=== PATIENT | male | born 1945 | race Caucasian/White ===

== ENCOUNTER 2017-01-11 21:56 | Inpatient (IN) ==
[2017-01-11] MEDS ORDERED: Ondansetron 4 MG/2 ML VIAL IVP ONE (22:12)
--- NOTE | 2017-01-11 22:14 | Emergency Department Note ---
Disposition Clinical Impression: Weakness CHF (congestive heart failure) Qualifiers: Congestive heart failure type: unspecified congestive heart failure type Congestive heart failure chronicity: unspecified congestive heart failure chronicity Qualified Code(s): I50.9 - Heart failure, unspecified Disposition: Admitted As Inpatient Condition: Fair Time of Disposition: 02:35 General Adult HPI - General Chief complaint: ED Nausea/Vomiting/Diarrhea Stated complaint: N/V Time Seen by Provider: 01/11/17 22:10 Source: family Limitations: no limitations Nursing Notes Reviewed: Yes Vital Signs Reviewed: Yes - History of Present Illness HPI Narrative: 71-year-old male with known history of CHF who arrives via private vehicle complaints of bleeding from his lower extremities, leg swelling, worsening weakness. His reported [facility] told that [facility] were [facility] and was instructed to try to the emergency department here. She reported that patient is legally blind, is normally able to ambulate however today he has been unable to. Patient's was also reports that he has had nausea and vomiting all day. reports patient had been confused earlier today. Patient states he discontinued his Lasix about 1 week ago that he was taken for his lower extremity edema. reports patient is on Coumadin for history of lower extremity blood clot last year. Pain Scale: 5 - Related Data Allergies Allergy/AdvReac Type Severity Reaction Status Date / Time No Known Allergies Allergy Verified 01/11/17 22:01 All systems ED: reviewed and negative except as stated. Constitutional: Denies: fever, chills Eyes: Reports: vision change (chronic blindness) ENT ED: Denies: ear pain, throat pain Cardiovascular: Denies: chest pain, palpitations, dyspnea on exertion Respiratory: Denies: dyspnea Gastrointestinal: Reports: nausea, vomiting. Denies: abdominal pain, diarrhea, constipation Genitourinary: Denies: dysuria Musculoskeletal: Denies: back pain, neck pain Integumentary: Reports: as per HPI Neurological: Denies: headache, weakness Endocrine: Denies: fatigue Hematological/Lymphatic: Denies: easy bleeding Allergic/Immunologic: Denies: facial swelling Past Medical History - Past Medical History Medical history: Reports: CHF, DVT, diabetes - Social History Smoking Status: Never smoker Alcohol use: Reports: none Drug use: Reports: none Physical Exam - General Limitations: no limitations General appearance: alert, in no apparent distress - Head Head exam: normocephalic - Eye Eye exam: Present: EOMI - ENT ENT exam: mucous membranes moist - Neck Neck exam: Present: full ROM - Chest Chest inspection: Present: normal inspection, symmetric chest wall rise - Respiratory Respiratory exam: Absent: respiratory distress - Cardiovascular Cardiovascular exam: Present: regular rate, normal rhythm - Abdominal Exam Abdominal exam: Present: soft, Non-Tender - Extremities Exam Extremities exam: Present: normal inspection, full ROM, pedal edema - Expanded Lower Extremity Exam Lower leg exam: Present: swelling, erythema Ankle exam: Present: swelling, erythema Foot/toe exam: Present: swelling, erythema Gait: not tested/not observed - Back Exam Back exam: Present: full ROM - Neurological Exam Neurological exam: Present: alert - Psychiatric Psychiatric exam: Present: normal affect, normal mood - Skin Skin exam: Present: warm, dry, intact, normal color. Absent: rash, cyanosis, diaphoresis Course Course Narrative: Patient seen and examined, he is in no acute distress, does not look toxic. No abdominal pain. Lungs clear to auscultation no rhonchi or rales. Does have significant lower extremity edema, chronic-appearing discoloration and edema. Left lower extremity bandaging placed controlling bleed. Does report chronic wound over that area as well. reports patient had more confused today.Workup initiated. - Reevaluation(s) Reevaluation #1: EKG nonspecific ST changes. Patient does have elevated troponin, but he denies any shortness of breath chest pain diaphoresis. This may be related to his renal function however [facility] Patient received Zofran his nausea has improved. Time: 23:15 Reevaluation #2: Chest x-ray small left-sided pleural effusion. Discussed with Dr. Bird, we will page the hospitalist for admission for edema, CHF, weakness. Time: 00:39 Reevaluation #3: Patient discussed with and accepted by hospitalist Dr. Means Time: 02:34 Vital Signs Temperature 98.1 F 01/11/17 21:57 Pulse Rate 88 01/11/17 21:57 Respiratory Rate 20 01/11/17 21:57 Blood Pressure 182/76 01/11/17 21:57 O2 Sat by Pulse Oximetry 97 01/11/17 21:57 Temperature 98.1 F 01/11/17 21:57 Pulse Rate 86 01/12/17 00:54 Respiratory Rate 16 01/12/17 02:55 Blood Pressure 182/69 01/12/17 02:55 O2 Sat by Pulse Oximetry 95 01/12/17 00:55 Oxygen Delivery Oxygen Delivery Room Air Medical Decision Making - Lab Data Lab results reviewed: Yes I reviewed the patient's lab results. Result diagrams: 01/11/17 22:27 01/11/17 22:27 Lab Results 01/11/17 01/11/17 01/11/17 Range/Units 22:27 22:27 22:27 WBC (4.3-11.1) K/mcL RBC (4.19-5.50) M/mcL Hgb (12.9-16.9) g/dL Hct (37.5-50.1) % MCV (83.0-100.0) fL MCH (28.0-33.3) pg MCHC (31.6-35.5) g/dL RDW (11.5-14.5) % Plt Count (140-400) K/mcL MPV (9.4-12.4) fL Immature Gran % (0-4) % Seg Neutrophils % % Lymphocytes % % Monocytes % % Eosinophils % % Basophils % % Neutrophils # (1.6-8.9) K/mcL Lymphocytes # (0.6-4.6) K/mcL Monocytes # (0.0-1.3) K/mcL Eosinophils # (0.0-0.6) K/mcL Basophils # (0.0-0.2) K/mcL PT 25.6 H (9.4-12.1) Seconds INR 2.3 APTT 35.3 (26.0-36.0) Seconds Sodium 135 L (136-145) mEq/L Potassium 5.1 H (3.5-4.5) mEq/L Chloride 103 (98-109) mEq/L Carbon Dioxide 20 (19-29) mEq/L BUN 29 H (8-26) mg/dL Creatinine 1.76 H (0.72-1.25) mg/dL Est GFR ( Amer) 46 L (> 60) Est GFR (Non-Af Amer) 38 L (> 60) BUN/Creatinine Ratio 16 (6-26) Glucose 261 H (70-99) mg/dL Calculated Osmolality 295 (280-300) Calcium 8.8 (8.6-10.8) mg/dL Total Bilirubin 0.6 (0.2-1.2) mg/dL Direct Bilirubin 0.3 (0.0-0.5) mg/dL Indirect Bilirubin 0.3 (0.0-1.2) mg/dL AST 14 (5-34) Units/L ALT 9 (0-55) Units/L Alkaline Phosphatase 77 (38-126) Units/L Troponin I (0-0.03) ng/mL B-Natriuretic Peptide 692 H (0-100) pg/mL Serum Total Protein 7.8 (6.0-8.3) g/dL Albumin 2.8 L (3.5-5.0) g/dL Globulin 5.0 H (2.4-3.5) g/dL Albumin/Globulin Ratio 0.6 L (1.1-2.2) Urine Color (Yellow) Urine Clarity (Clear) Urine pH (5.0-8.0) pH Units Ur Specific [place] (1.010-1.025) Urine Protein (Neg-Trace) mg/dL Urine Glucose (UA) (Normal) mg/dL Urine Ketones (Negative) mg/dL Urine Blood (Negative) Urine Nitrite (Negative) Urine Bilirubin (Negative) Urine Urobilinogen (Normal) mg/dL Ur Leukocyte Esterase (Negative) Urine Microscopic RBC (0-3) per hpf Urine Microscopic WBC (0-3) per hpf Ur Squamous Epith Cells (None-Few) per lpf Urine Bacteria (None-Few) per hpf Hyaline Casts (None-Few) per lpf Ur Culture Indicated? (NO) 01/11/17 01/11/17 01/11/17 Range/Units 22:27 22:27 23:30 WBC 13.6 H (4.3-11.1) K/mcL RBC 3.46 L (4.19-5.50) M/mcL Hgb 8.6 L (12.9-16.9) g/dL Hct 28.1 L (37.5-50.1) % MCV 81.2 L (83.0-100.0) fL MCH 24.9 L (28.0-33.3) pg MCHC 30.6 L (31.6-35.5) g/dL RDW 16.4 H (11.5-14.5) % Plt Count 206 (140-400) K/mcL MPV 10.4 (9.4-12.4) fL Immature Gran % 0.6 (0-4) % Seg Neutrophils % 91.4 % Lymphocytes % 3.5 % Monocytes % 4.3 % Eosinophils % 0.0 % Basophils % 0.2 % Neutrophils # 12.4 H (1.6-8.9) K/mcL Lymphocytes # 0.5 L (0.6-4.6) K/mcL Monocytes # 0.6 (0.0-1.3) K/mcL Eosinophils # 0.0 (0.0-0.6) K/mcL Basophils # 0.0 (0.0-0.2) K/mcL PT (9.4-12.1) Seconds INR APTT (26.0-36.0) Seconds Sodium (136-145) mEq/L Potassium (3.5-4.5) mEq/L Chloride (98-109) mEq/L Carbon Dioxide (19-29) mEq/L BUN (8-26) mg/dL Creatinine (0.72-1.25) mg/dL Est GFR ( Amer) (> 60) Est GFR (Non-Af Amer) (> 60) BUN/Creatinine Ratio (6-26) Glucose (70-99) mg/dL Calculated Osmolality (280-300) Calcium (8.6-10.8) mg/dL Total Bilirubin (0.2-1.2) mg/dL Direct Bilirubin (0.0-0.5) mg/dL Indirect Bilirubin (0.0-1.2) mg/dL AST (5-34) Units/L ALT (0-55) Units/L Alkaline Phosphatase (38-126) Units/L Troponin I 0.06 H* (0-0.03) ng/mL B-Natriuretic Peptide (0-100) pg/mL Serum Total Protein (6.0-8.3) g/dL Albumin (3.5-5.0) g/dL Globulin (2.4-3.5) g/dL Albumin/Globulin Ratio (1.1-2.2) Urine Color Yellow (Yellow) Urine Clarity Clear (Clear) Urine pH 5.5 (5.0-8.0) pH Units Ur Specific [place] 1.016 (1.010-1.025) Urine Protein 100 H (Neg-Trace) mg/dL Urine Glucose (UA) 100 H (Normal) mg/dL Urine Ketones Negative (Negative) mg/dL Urine Blood Moderate H (Negative) Urine Nitrite Negative (Negative) Urine Bilirubin Negative (Negative) Urine Urobilinogen Normal (Normal) mg/dL Ur Leukocyte Esterase Negative (Negative) Urine Microscopic RBC 5-15 H (0-3) per hpf Urine Microscopic WBC 0-3 (0-3) per hpf Ur Squamous Epith Cells Many H (None-Few) per lpf Urine Bacteria None Seen (None-Few) per hpf Hyaline Casts None Seen (None-Few) per lpf Ur Culture Indicated? NO (NO) - Radiology Data Radiology results reviewed: Yes I reviewed the patient's radiology results. Chest X-Ray 01/11/17 22:11 IMPRESSION: Left basilar atelectasis with probable small left pleural effusion. D/ / 01/11/2017 22:29:27 Cal Thomson MD / kt Interpreting Provider: Cal Thomson MD Attestation Statement - Attestation Attestation: I, Ramy Bird MD, personally performed a history and physical exam of the patient and discussed their management with the midlevel provicer, PAC/[employer]. I reviewed the midlevel provider's note and agree with the documented findings, medical decision making, and plan of care. 71-year-old male presents to the emergency department with a complaint of increasing edema of the lower extremities bilaterally over the past few days. He also complains of increasing generalized weakness. Family reports that for the last one day he has been unable to even stand which is not normal for him. He normally ambulates around the house. Patient denies any increased shortness of breath or chest pain. On examination patient is a morbidly obese elderly male in no acute distress. He is alert and oriented and answers questions appropriately. There is no cyanosis or diaphoresis. Chest is nontender to palpation. Breath sounds are decreased bilaterally with a few bibasilar rales. Heart regular. Abdomen soft with normal bowel sounds. Severe pitting edema of the lower extremities bilaterally with chronic stasis skin changes. Labs reviewed. WBC 13.6 with 91.4% segs. Hemoglobin 8.6. Troponin 0.06. BNP 692. Chest x-ray shows left basilar atelectasis with possible small left pleural effusion. The hospitalist, Dr. Means, was consulted and accepted admission of the patient.
[2017-01-11 22:37] LABS: Basophils % 0.2 %; Hematocrit 28.1 % (37.5-50.1); Hemoglobin 8.6 g/dL (12.9-16.9); Immature Granulocytes % 0.6 % (0-4); Lymphocytes # 0.5 K/mcL (0.6-4.6); Lymphocytes % 3.5 %; Mean Corpuscular HGB Conc 30.6 g/dL (31.6-35.5); Mean Corpuscular Hemoglobin 24.9 pg (28.0-33.3); Mean Corpuscular Volume 81.2 fL (83.0-100.0); Mean Platelet Volume 10.4 fL (9.4-12.4); Monocytes # 0.6 K/mcL (0.0-1.3); Monocytes % 4.3 %; Neutrophils # 12.4 K/mcL (1.6-8.9); Platelet Count 206 K/mcL (140-400); Red Blood Count 3.46 M/mcL (4.19-5.50); Red Cell Distribution Width 16.4 % (11.5-14.5); Segmented Neutrophils % 91.4 %
[2017-01-11 22:42] LABS: INR 2.3; Prothrombin Time 25.6 Seconds (9.4-12.1)
[2017-01-11 22:45] LABS: Activated Partial Thrombo Time 35.3 Seconds (26.0-36.0)
[2017-01-11 22:54] LABS: Albumin 2.8 g/dL (3.5-5.0); Albumin/Globulin Ratio 0.6 (1.1-2.2); Bilirubin,Direct 0.3 mg/dL (0.0-0.5); Bilirubin,Indirect 0.3 mg/dL (0.0-1.2); Bilirubin,Total 0.6 mg/dL (0.2-1.2); Calcium 8.8 mg/dL (8.6-10.8); Potassium 5.1 mEq/L (3.5-4.5); Total Protein 7.8 g/dL (6.0-8.3)
[2017-01-11 23:37] LABS: Bilirubin,Urine Negative (Negative); Blood,Urine Moderate (Negative); Clarity,Urine Clear (Clear); Color,Urine Yellow (Yellow); Glucose,Urine (UA) 100 mg/dL (Normal); Ketones,Urine Negative (Negative); Leukocyte Esterase,Urine Negative (Negative); Nitrite,Urine Negative (Negative); PH,Urine 5.5 pH Units (5.0-8.0); Protein,Urine 100 mg/dL (Neg-Trace); Specific Gravity,Urine 1.016 (1.010-1.025); Urobilinogen,Urine Normal (Normal)
[2017-01-11 23:38] LABS: Bacteria,Urine None Seen per hpf (None-Few); Hyaline Casts,Urine None Seen per lpf (None-Few); Squamous Epithelial Cell,Urine Many per lpf (None-Few); WBC,Urine 0-3 per hpf (0-3)
[2017-01-12] MEDS ORDERED: Furosemide 40 MG/4 ML VIAL IVP ONE (03:05)
[2017-01-12] MEDS ORDERED: Acetaminophen 325 MG TABLET PO PRN (03:06)
[2017-01-12] MEDS ORDERED: Ondansetron ODT 4 MG TAB.RAPDIS SL PRN (03:06)
[2017-01-12] MEDS ORDERED: D5% in Water 1,000 ML IV PRN (03:06)
[2017-01-12] MEDS ORDERED: Dextrose Gel 15 GM PO PRN ×2 (03:06)
[2017-01-12] MEDS ORDERED: Naloxone 0.4 MG/ML INJ IVP PRN (03:06)
[2017-01-12] MEDS ORDERED: *HR* Dextrose 50 % in Water (Syg) 50 ML SYRINGE IVP PRN (03:06)
--- NOTE | 2017-01-12 03:31 | Internal Med History&Physical ---
<Ayesha Rick - Last Filed: 01/12/17 05:07> Date of Encounter: 01/12/17 Time of Encounter: 03:29 Assessment and Plan (1) Weakness Current visit: Yes Status: Acute likely due to gastroenteritis, decreased oral intake PT/OT consulted (2) Hyperkalemia Current visit: Yes Status: Acute kayexalate IV lasix recheck at 3pm (3) PRANAV (acute kidney injury) Current visit: Yes Status: Acute most likely prerenal due to N/V, decreased oral intake gentle IVF hydration avoid nephrotoxins (lasix will be an exception) (4) Elevated troponin Current visit: Yes Status: Acute denies chest pain trend troponin (5) Pedal edema Current visit: Yes Status: Acute IV lasix, switch to PO when patient can tolerate (6) Neutrophilic leukocytosis Current visit: Yes Status: Acute (7) Anemia Current visit: Yes Status: Chronic pt takes iron supplements unknown Hg baseline Qualifiers: Anemia type: iron deficiency Iron deficiency anemia type: unspecified iron deficiency Qualified Code(s): D50.9 - Iron deficiency anemia, unspecified (8) Hx of deep venous thrombosis Current visit: Yes Status: Chronic INR therapeutic in ER coumadin pharmacy to dose (9) Diabetes Current visit: Yes Status: Chronic sliding scale HgA1C ordered Qualifiers: Diabetes mellitus type: type 2 Diabetes mellitus complication status: with unspecified complications Diabetes mellitus professional sports scout insulin use: unspecified professional sports scout insulin use status Qualified Code(s): E11.8 - Type 2 diabetes mellitus with unspecified complications (10) HTN (hypertension) Current visit: Yes Status: Chronic Qualifiers: Hypertension type: essential hypertension Qualified Code(s): I10 - Essential (primary) hypertension (11) CHF (congestive heart failure) Current visit: Yes Status: Chronic baseline BNP unknown echocardiogram Qualifiers: Congestive heart failure type: unspecified congestive heart failure type Congestive heart failure chronicity: unspecified congestive heart failure chronicity Qualified Code(s): I50.9 - Heart failure, unspecified Internal Medicine - H&P: HPI Chief complaint: weakness Admitted From: Emergency Dept Plans for Post Hospital Care: Home History of present illness: Mr. Jerez is a 71 year old diabetic with chronic venous stasis, CHF, HTN, HLD, who presents to the ER complaining of weakness. He has had nausea and vomiting with decreased oral intake for the previous 2 days. Today he states difficulty in ambulating throughout his home. His lower extremity edema is worse due to him having vomited up his medications the past few days. Labs in the ER show hyperkalemia, PRANAV, elevated troponin, elevated BNP, neutropihilic leukocytosis, and anemia. Past Med Surg Social Fam HX - Past Medical History Medical history: CHF, DVT, diabetes, hyperlipidemia, hypertension, venous stasis , other (legally blind) - Social History Smoking Status: Never smoker Alcohol use: none Drug use: none Internal Medicine - H&P: Meds Aspirin [Lo-Dose Aspirin EC] 81 mg PO DAILY 01/12/17 [History] Bimatoprost [Lumigan] 1 drop BOTH EYES HS 01/12/17 [History] Brinzolamide/Brimonidine Tart [Simbrinza 1%-0.2% Eye Drops] 1 drop BOTH EYES TID 01/12/17 [History] Calcitriol [Rocaltrol] 0.25 mcg PO DAILY 01/12/17 [History] Clobetasol Propionate 0.05% [Temovate] 1 appl TP BID 01/12/17 [History] Collagenase Oint [Santyl] 1 appl TP DAILY 01/12/17 [History] Ferrous Sulfate [Iron] 325 mg PO DAILY 01/12/17 [History] Furosemide [Lasix] 80 mg PO DAILY 01/12/17 [History] Gabapentin [Neurontin] 600 mg PO TID 01/12/17 [History] Insulin ASPART [Novolog Flexpen] 20 - 36 unit SQ TIDWM 01/12/17 [History] Insulin Glargine [Lantus] 80 unit SQ QPM 01/12/17 [History] Lisinopril [Zestril] 5 mg PO DAILY 01/12/17 [History] Timolol Maleate 0.5% [Timolol Maleate 0.5%] 1 drop BOTH EYES BID 01/12/17 [ History] Urea [Keralac] 1 appl TP DAILY 01/12/17 [History] Warfarin [Coumadin] 7.5 mg PO MOFR 01/12/17 [History] Warfarin [Coumadin] 10 mg PO SUTUWETHSA 01/12/17 [History] Allergies metformin Allergy (Unknown, Verified 01/12/17 12:33) See Comments Patient states he has NKDA but Metformin is listed [facility] All Systems PM: A 10-system review of systems was performed and is negative for pertinent findings except as documented above in the HPI. - Constitutional Constitutional: weakness, no chills, no fever(s), no night sweats - EENT Eyes: loss of vision (chronic legal blindness), no change in vision, no discharge, no pain, no photophobia Ears: no ear discharge, no ear pain, no tinnitus Nose, mouth and throat: no dysphagia, no nasal discharge, no neck pain, no sore throat - Cardiovascular Cardiovascular ROS IM: no chest pain, no diaphoresis, no dyspnea, no lightheadedness, no palpitations, no syncope - Respiratory Respiratory: no cough, no dyspnea, no wheezing, no excessive phlegm production - Gastrointestinal Gastrointestinal: nausea, vomiting, no abdominal pain, no diarrhea, no hematemesis, no hematochezia, no melena - Musculoskeletal Musculoskeletal ROS IM: other (increased LE swelling), no numbness, no tingling - Integumentary Integumentary IM: no rash, no unusual bruising - Neurological Neurological ROS: no confusion, no convulsions, no focal weakness, no numbness, no tingling, no tremor(s) - Hematologic/Lymphatic Hematologic/Lymphatic: no easy bruising - Constitutional Vitals: Temp Pulse Resp BP Pulse Ox 98.1 F 86 16 182/69 95 01/11/17 21:57 01/12/17 00:54 01/12/17 02:55 01/12/17 02:55 01/12/17 00:55 General appearance: Present: cooperative, A&O X 3, obese - Head Head exam: Present: atraumatic, normocephalic - Eye Eye exam: Present: PERRL, conjuntiva pink, sclera anicteric Pupils: Present: PERRL - Neck Neck exam general surgery: Present: supple, trachea midline. Absent: lymphadenopathy - Respiratory Respiratory exam: Present: CTAB. Absent: accessory muscle use, rales, rhonchi, wheezes - Cardiovascular Cardiovascular exam: Present: RRR, +S1, +S2, systolic murmur. Absent: diastolic murmur, gallop, rubs - GI/Abdominal GI/Abdominal exam: Present: normal bowel sounds, soft, no peritoneal signs. Absent: distended, tenderness - Extremities Exam Extremities exam: Present: pedal edema. Absent: normal inspection Additional comments: 2-3+ pitting edema, chronic venous stasis discoloration with lichenification of bilateral LE - left leg bandaged due to chronic weeping of wounds, dorsalis pedis pulses palpable +2/4 - Neurological Exam Neurological exam: Present: oriented X3, no focal deficits. Absent: CN II-XII intact (legally blind, extraocular muscles not tested due to blindness), pronater drift, facial droop, speech deficit - Skin Additional comments: lichenification with chronic venous stasis color changes of bilateral LE - left leg bandaged during my exam due to chronic weeping of wound Internal Med - H&P Results - Labs CBC & Chem 7: 01/11/17 22:27 01/11/17 22:27 <Emil Means - Last Filed: 01/14/17 01:51> Date of Encounter: 01/12/17 Assessment and Plan (1) Acute kidney injury superimposed on chronic kidney disease Current visit: Yes Status: Acute . (2) Anasarca associated with disorder of kidney Current visit: Yes Status: Acute . (3) Cellulitis of both lower extremities Current visit: Yes Status: Acute . (4) Type 2 diabetes mellitus Current visit: Yes Status: Chronic Qualifiers: Diabetes mellitus complication status: with unspecified complications Diabetes mellitus professional sports scout insulin use: unspecified professional sports scout insulin use status Qualified Code(s): E11.8 - Type 2 diabetes mellitus with unspecified complications (5) Diastolic CHF with preserved left ventricular function, NYHA class 2 Current visit: Yes Status: Acute . (6) Diastolic CHF, acute on chronic Current visit: Yes Status: Acute . (7) Anemia of chronic disease Current visit: Yes Status: Chronic . (8) Hyperkalemia, diminished renal excretion Current visit: Yes Status: Acute . (9) Poorly controlled diabetes mellitus Current visit: Yes Status: Acute . (10) Protein-calorie malnutrition, moderate Current visit: Yes Status: Chronic . (11) Iron deficiency Current visit: Yes Status: Chronic . (12) Morbid obesity with BMI of 40.0-44.9, adult Current visit: Yes Status: Chronic . (13) Morbid obesity with alveolar hypoventilation Current visit: Yes Status: Chronic . (14) SIRS due to infectious process with acute organ dysfunction Current visit: Yes Status: Acute . (15) Demand ischemia of myocardium Current visit: Yes Status: Acute . (16) Non-ST elevation myocardial infarction (NSTEMI) due to mismatch of myocardial oxygen supply and demand Current visit: Yes Status: Acute . (17) Abnormal urinalysis Current visit: Yes Status: Acute . (18) Proteinuria due to type 2 diabetes mellitus Current visit: Yes Status: Acute . (19) Atelectasis of left lung Current visit: Yes Status: Acute . (20) Acute gastroenteritis Current visit: Yes Status: Acute . (21) Nausea and vomiting in adult patient Current visit: Yes Status: Acute . (22) Pneumonitis Current visit: Yes Status: Acute . (23) Acute and chronic respiratory failure with hypoxia Current visit: Yes Status: Acute . (24) Electrolyte and fluid disorders not elsewhere classified Current visit: Yes Status: Acute . (25) Blindness Current visit: Yes Status: Chronic . (26) Frailty Current visit: Yes Status: Chronic . (27) At risk for abnormal gastrointestinal motility Current visit: Yes Status: Acute . (28) At risk for accident in home Current visit: Yes Status: Acute . (29) At risk for acid-base imbalance Current visit: Yes Status: Acute . (30) At risk for activity intolerance Current visit: Yes Status: Acute . (31) At risk for acute confusion Current visit: Yes Status: Acute . (32) At risk for acute ischemic cardiac event Current visit: Yes Status: Acute . (33) At risk for abnormal blood glucose level Current visit: Yes Status: Acute . (34) Chronic venous stasis dermatitis Current visit: Yes Status: Chronic . (35) Neutrophilic leukocytosis Current visit: Yes Status: Acute (36) Wound of lower extremity Current visit: Yes Status: Chronic . Qualifiers: Encounter type: initial encounter Laterality: unspecified laterality Qualified Code(s): S81.809A - Unspecified open wound, unspecified lower leg, initial encounter (37) HTN (hypertension) Current visit: Yes Status: Chronic Qualifiers: Hypertension type: essential hypertension Qualified Code(s): I10 - Essential (primary) hypertension (38) Hx of deep venous thrombosis Current visit: Yes Status: Chronic Internal Medicine - H&P: HPI Admitted From: Emergency Dept Plans for Post Hospital Care: Home History of present illness: Mr. Jerez is a 71 year old male [facility] patient admitted [facility] via the emergency department when he presented with complaints of generalized weakness associated with complaints of nausea vomiting diarrhea, as well as lower extremity swelling and bleeding from chronic venous stasis wounds of the lower extremities. The patient was visited and interviewed and examined. I examined this patient and my medical decision-making was reviewed with the Resident Physician. For this encounter, I have reviewed the documentation, treatment plan, and medical decision making. I agree with the documented findings, disposition and treatment plan as described except to the extent set forth below. Cumulative laboratory and radiographic database was reviewed, considered and discussed. Given the patient's presenting concerns, past medical history, clinical findings and symptoms, he is admitted at this time to undergo further evaluation and disposition. Past Med Surg Social Fam HX - Past Medical History Source: old records reviewed Medical history: arthritis, CHF, coronary artery disease, DVT, diabetes, GERD, glaucoma, hyperlipidemia, hypertension, osteoporosis, renal disease, venous stasis, other Psychiatric history: anxiety, PTSD, other - Past Surgical History Surgical History: non-contributory - Social History Smoking Status: Never smoker Alcohol use: none Drug use: none Occupational status: retired, disabled Current living situation: With Family Activity Level: Independent ambulation, Uses cane/walker, Mostly sedentary Recent Out of Country Travel Within the Last 8 Weeks: No Exposure or Possible Exposure to Illness During Travel: No All Systems PM: A 10-system review of systems was performed and is negative for pertinent findings except as documented above in the HPI. - Constitutional Vitals: Temp Pulse Resp BP Pulse Ox 98.4 F 63 20 142/77 95 01/13/17 23:50 01/13/17 23:50 01/14/17 00:22 01/13/17 23:50 01/14/17 00:22 Internal Med - H&P Results - Labs CBC & Chem 7: 01/13/17 07:18 01/13/17 07:18 Labs: Short CBC 01/13/17 Range/Units 07:18 WBC 10.5 (4.3-11.1) K/mcL Hgb 8.0 L (12.9-16.9) g/dL Hct 26.0 L (37.5-50.1) % Plt Count 181 (140-400) K/mcL Neutrophils # 8.8 (1.6-8.9) K/mcL BMP 01/13/17 07:18 Sodium 138 Potassium 4.2 Chloride 105 Carbon Dioxide 23 BUN 35 H Creatinine 1.71 H Glucose 87 Calcium 8.2 L Cardiac Enzymes 01/13/17 Range/Units 16:17 Troponin I 0.06 H* (0-0.03) ng/mL Vital Signs Temp Pulse Resp BP Pulse Ox 01/14/17 00:22 20 95 01/13/17 23:50 98.4 F 63 18 142/77 98 01/13/17 22:04 98.2 F 67 18 166/101 94 L 01/13/17 15:49 98.4 F 79 19 176/116 92 L 01/13/17 14:00 18 94 L 01/13/17 11:55 98.9 F 76 18 173/70 94 L 01/13/17 08:54 98.3 F 75 16 165/76 94 L 01/13/17 04:59 98.4 F 78 18 179/79 94 L Intake and Output 01/13/17 01/13/17 01/14/17 15:59 23:59 07:59 Intake Total 210 / 210 350 / 350 Output Total 450 / 450 Balance -240 / -240 350 / 350 Intake: IV Fluids 350 / 350 Zithromax 500 mg In 250 / 250 Dextrose 5% 250 ML @ 252 mls/hr IVPB Q24H EZ Rx#: [id number] Rocephin 2,000 MG In 100 / 100 Dextrose 5% (Minibag+) 100 ML 100 ML @ 200 mls/ hr IVPB Q24H EZ Rx#: [id number] Oral 210 / 210 Output: Urine 450 / 450 Other: Meal Breakfast Percent of Meal Consumed 50% # Voids 1 Blood Glucose* 189 138 - Impressions ITS Impressions Retroperitoneum Ultrasound 01/13/17 20:00 IMPRESSION: No hydronephrosis. Poor voiding of the bladder with postvoid residual of 574 ml. D/ / Lindsay Byers MD / Lindsay Byers MD Interpreting Provider: Lindsay Byers MD Abnormal lab results RBC 3.27 M/mcL (4.19-5.50) L 01/13/17 07:18 Hgb 8.0 g/dL (12.9-16.9) L 01/13/17 07:18 Hct 26.0 % (37.5-50.1) L 01/13/17 07:18 MCV 79.5 fL (83.0-100.0) L 01/13/17 07:18 MCH 24.5 pg (28.0-33.3) L 01/13/17 07:18 MCHC 30.8 g/dL (31.6-35.5) L 01/13/17 07:18 RDW 16.5 % (11.5-14.5) H 01/13/17 07:18 ESR 83 mm/hr (0-10) H 01/12/17 07:20 PT 28.0 Seconds (9.4-12.1) H 01/13/17 07:18 BUN 35 mg/dL (8-26) H 01/13/17 07:18 Creatinine 1.71 mg/dL (0.72-1.25) H 01/13/17 07:18 Est GFR ( Amer) 48 (> 60) L 01/13/17 07:18 Est GFR (Non-Af Amer) 39 (> 60) L 01/13/17 07:18 POC Glucose 138 (58-89) H 01/13/17 21:57 Hemoglobin A1c 7.4 % (-5.6) H 01/12/17 07:20 Calcium 8.2 mg/dL (8.6-10.8) L 01/13/17 07:18 Magnesium 1.5 mg/dL (1.6-2.6) L 01/12/17 07:20 Iron 12 mcg/dL (65-175) L 01/13/17 07:18 % Saturation 5 % (20-55) L 01/13/17 07:18 Transferrin 167 mg/dL (174-364) L 01/13/17 07:18 Troponin I 0.06 ng/mL (0-0.03) H* 01/13/17 16:17 C-Reactive Protein 131 mg/L (Less than 5) H 01/12/17 07:20 B-Natriuretic Peptide 692 pg/mL (0-100) H 01/11/17 22:27 Albumin 2.7 g/dL (3.5-5.0) L 01/12/17 07:20 Globulin 5.0 g/dL (2.4-3.5) H 01/12/17 07:20 Albumin/Globulin Ratio 0.5 (1.1-2.2) L 01/12/17 07:20 Prealbumin 12.0 mg/dL (18.0-45.0) L 01/13/17 07:18 HDL Cholesterol 39 mg/dL (40-59) L 01/13/17 07:18 Urine Protein 100 mg/dL (Neg-Trace) H 01/11/17 23:30 Urine Glucose (UA) 100 mg/dL (Normal) H 01/11/17 23:30 Urine Blood Moderate (Negative) H 01/11/17 23:30 Urine Microscopic RBC 5-15 per hpf (0-3) H 01/11/17 23:30 Ur Squamous Epith Cells Many per lpf (None-Few) H 01/11/17 23:30 Laboratory Last Values WBC 10.5 K/mcL (4.3-11.1) 01/13/17 07:18 RBC 3.27 M/mcL (4.19-5.50) L 01/13/17 07:18 Hgb 8.0 g/dL (12.9-16.9) L 01/13/17 07:18 Hct 26.0 % (37.5-50.1) L 01/13/17 07:18 MCV 79.5 fL (83.0-100.0) L 01/13/17 07:18 MCH 24.5 pg (28.0-33.3) L 01/13/17 07:18 MCHC 30.8 g/dL (31.6-35.5) L 01/13/17 07:18 RDW 16.5 % (11.5-14.5) H 01/13/17 07:18 Plt Count 181 K/mcL (140-400) 01/13/17 07:18 MPV 10.7 fL (9.4-12.4) 01/13/17 07:18 Immature Gran % 0.4 % (0-4) 01/13/17 07:18 Seg Neutrophils % 84.4 % 01/13/17 07:18 Lymphocytes % 7.2 % 01/13/17 07:18 Monocytes % 6.8 % 01/13/17 07:18 Eosinophils % 1.1 % 01/13/17 07:18 Basophils % 0.1 % 01/13/17 07:18 Neutrophils # 8.8 K/mcL (1.6-8.9) 01/13/17 07:18 Lymphocytes # 0.8 K/mcL (0.6-4.6) 01/13/17 07:18 Monocytes # 0.7 K/mcL (0.0-1.3) 01/13/17 07:18 Eosinophils # 0.1 K/mcL (0.0-0.6) 01/13/17 07:18 Basophils # 0.0 K/mcL (0.0-0.2) 01/13/17 07:18 ESR 83 mm/hr (0-10) H 01/12/17 07:20 PT 28.0 Seconds (9.4-12.1) H 01/13/17 07:18 INR 2.5 01/13/17 07:18 APTT 35.3 Seconds (26.0-36.0) 01/11/17 22:27 Sodium 138 mEq/L (136-145) 01/13/17 07:18 Potassium 4.2 mEq/L (3.5-4.5) 01/13/17 07:18 Chloride 105 mEq/L (98-109) 01/13/17 07:18 Carbon Dioxide 23 mEq/L (19-29) 01/13/17 07:18 BUN 35 mg/dL (8-26) H 01/13/17 07:18 Creatinine 1.71 mg/dL (0.72-1.25) H 01/13/17 07:18 Est GFR ( Amer) 48 (> 60) L 01/13/17 07:18 Est GFR (Non-Af Amer) 39 (> 60) L 01/13/17 07:18 BUN/Creatinine Ratio 20 (6-26) 01/13/17 07:18 Glucose 87 mg/dL (70-99) 01/13/17 07:18 POC Glucose 138 (58-89) H 01/13/17 21:57 Est Mean Plasma Glucose 166 mg/dl 01/12/17 07:20 Hemoglobin A1c 7.4 % (-5.6) H 01/12/17 07:20 Calculated Osmolality 293 (280-300) 01/13/17 07:18 Calcium 8.2 mg/dL (8.6-10.8) L 01/13/17 07:18 Phosphorus 3.4 mg/dL (2.3-4.7) 01/12/17 07:20 Magnesium 1.5 mg/dL (1.6-2.6) L 01/12/17 07:20 Iron 12 mcg/dL (65-175) L 01/13/17 07:18 % Saturation 5 % (20-55) L 01/13/17 07:18 Transferrin 167 mg/dL (174-364) L 01/13/17 07:18 Total Bilirubin 0.5 mg/dL (0.2-1.2) 01/12/17 07:20 Direct Bilirubin 0.3 mg/dL (0.0-0.5) 01/11/17 22:27 Indirect Bilirubin 0.3 mg/dL (0.0-1.2) 01/11/17 22:27 AST 15 Units/L (5-34) 01/12/17 07:20 ALT 8 Units/L (0-55) 01/12/17 07:20 Alkaline Phosphatase 72 Units/L (38-126) 01/12/17 07:20 Ammonia 24 mcmol/L (18-72) 01/12/17 07:20 Troponin I 0.06 ng/mL (0-0.03) H* 01/13/17 16:17 C-Reactive Protein 131 mg/L (Less than 5) H 01/12/17 07:20 B-Natriuretic Peptide 692 pg/mL (0-100) H 01/11/17 22:27 Serum Total Protein 7.7 g/dL (6.0-8.3) 01/12/17 07:20 Albumin 2.7 g/dL (3.5-5.0) L 01/12/17 07:20 Globulin 5.0 g/dL (2.4-3.5) H 01/12/17 07:20 Albumin/Globulin Ratio 0.5 (1.1-2.2) L 01/12/17 07:20 Prealbumin 12.0 mg/dL (18.0-45.0) L 01/13/17 07:18 Triglycerides 78 mg/dL (< 150) 01/13/17 07:18 Cholesterol 116 mg/dL (< 200) 01/13/17 07:18 LDL Cholesterol, Calc 61 mg/dL (0-99) 01/13/17 07:18 VLDL Cholesterol, Calc 16 mg/dL (< 31) 01/13/17 07:18 HDL Cholesterol 39 mg/dL (40-59) L 01/13/17 07:18 Cholesterol/HDL Ratio 3.0 (0-4.9) 01/13/17 07:18 TSH 1.417 mcIU/mL (0.350-4.840) 01/12/17 07:20 Urine Color Yellow (Yellow) 01/11/17 23:30 Urine Clarity Clear (Clear) 01/11/17 23:30 Urine pH 5.5 pH Units (5.0-8.0) 01/11/17 23:30 Ur Specific [place] 1.016 (1.010-1.025) 01/11/17 23:30 Urine Protein 100 mg/dL (Neg-Trace) H 01/11/17 23:30 Urine Glucose (UA) 100 mg/dL (Normal) H 01/11/17 23:30 Urine Ketones Negative mg/dL (Negative) 01/11/17 23:30 Urine Blood Moderate (Negative) H 01/11/17 23:30 Urine Nitrite Negative (Negative) 01/11/17 23:30 Urine Bilirubin Negative (Negative) 01/11/17 23:30 Urine Urobilinogen Normal mg/dL (Normal) 01/11/17 23:30 Ur Leukocyte Esterase Negative (Negative) 01/11/17 23:30 Urine Microscopic RBC 5-15 per hpf (0-3) H 01/11/17 23:30 Urine Microscopic WBC 0-3 per hpf (0-3) 01/11/17 23:30 Ur Squamous Epith Cells Many per lpf (None-Few) H 01/11/17 23:30 Urine Bacteria None Seen per hpf (None-Few) 01/11/17 23:30 Hyaline Casts None Seen per lpf (None-Few) 01/11/17 23:30 Ur Culture Indicated? NO (NO) 01/11/17 23:30 Blood Type A POSITIVE 01/12/17 07:20 Antibody Screen NEGATIVE 01/12/17 07:20 Chest X-Ray 01/11/17 22:11 IMPRESSION: Left basilar atelectasis with probable small left pleural effusion. D/ / 01/11/2017 22:29:27 Cal Thomson MD / kt Interpreting Provider: Cal Thomson MD Chest CT 01/12/17 08:00 IMPRESSION: Cardiomegaly, with bilateral small pleural effusions, left greater than right. Minimal ground-glass change also noted within the lungs which can be seen with a setting of mild edema or an infectious process. No area of consolidation seen. No spiculated lung mass or lymphadenopathy identified. Atherosclerotic disease including coronary artery involvement. Thyroid nodules are identified, the largest of which measuring approximately 1.7 cm on the left. Recommend follow-up ultrasound of the thyroid gland on a nonemergent basis. D/ / Usman Krishnan MD / Usman Krishnan MD Interpreting Provider: Usman Krishnan MD Lower Extremity CT 01/12/17 08:00 IMPRESSION: Mild injection of the subcutaneous fat with associated skin thickening on the right. No drainable abscess. Correlate for any clinical signs of cellulitis. Venous stasis change could account for these findings D/ / Mat العراقي MD / Mat العراقي MD Interpreting Provider: Mat العراقي MD Retroperitoneum Ultrasound 01/13/17 20:00 IMPRESSION: No hydronephrosis. Poor voiding of the bladder with postvoid residual of 574 ml. D/ / Lindsay Byers MD / Lindsay Byers MD Interpreting Provider: Lindsay Byers MD - Attending Attestation My signature below is to certify that this patient is under my care and that I, or the Resident Physician working with me, has had a [id number] encounter with this patient. Plan of care has been reviewed and discussed in detail with the patient. Questions addressed. Advance care directive discussion briefly addressed. Patient does not declare any healthcare restrictions at this time. Outpatient medications will be reviewed, confirmed and facilitated as appropriate. Reconciliation of home treatments including adjustments, self- sufficient reintroduction into treatment regimen as necessary maintenance therapy for chronic pre-existing medical conditions. Hospital course dictated by treatment response and potential consultative interventions. The patient is at risk for further clinical decline and morbidity given his presenting chief complaints, frailty and associated comorbidities. Condition is serious. Prognosis is guarded. CODE STATUS is full.
[2017-01-12] MEDS ORDERED: *HR* Metoprolol 5 MG/5 ML VIAL IVP PRN (03:56)
[2017-01-12] MEDS ORDERED: Ondansetron 4 MG/2 ML VIAL IVP PRN (04:28)
[2017-01-12] MEDS ORDERED: *HR* Morphine 2 MG/ML SYRINGE IVP PRN (04:28)
[2017-01-12] MEDS ORDERED: Nitroglycerin 0.4 MG TAB.SUBL SL PRN (04:36)
[2017-01-12] MEDS ORDERED: Benzonatate 100 MG CAPSULE PO PRN (04:36)
[2017-01-12] MEDS ORDERED: Insulin LISPRO 300 UNITS/3 ML VIAL SQ SCH (06:00)
[2017-01-12] MEDS ORDERED: Vancomycin 2,000 MG in D5% in Water 250 ML IVPB SCH (07:00)
[2017-01-12 07:47] LABS: Basophils % 0.2 %; Eosinophils % 0.1 %; Hematocrit 27.5 % (37.5-50.1); Hemoglobin 8.3 g/dL (12.9-16.9); Immature Granulocytes % 0.6 % (0-4); Lymphocytes # 0.6 K/mcL (0.6-4.6); Lymphocytes % 5.5 %; Mean Corpuscular HGB Conc 30.2 g/dL (31.6-35.5); Mean Corpuscular Hemoglobin 24.8 pg (28.0-33.3); Mean Corpuscular Volume 82.1 fL (83.0-100.0); Mean Platelet Volume 10.7 fL (9.4-12.4); Monocytes # 0.8 K/mcL (0.0-1.3); Monocytes % 7.1 %; Neutrophils # 9.4 K/mcL (1.6-8.9); Platelet Count 203 K/mcL (140-400); Red Blood Count 3.35 M/mcL (4.19-5.50); Red Cell Distribution Width 16.5 % (11.5-14.5); Segmented Neutrophils % 86.5 %
[2017-01-12] MEDS: Ipratropium/Albuterol Neb 3 ML IH SCH ×5 (08:04→23:47)
[2017-01-12 08:16] LABS: Albumin 2.7 g/dL (3.5-5.0); Albumin/Globulin Ratio 0.5 (1.1-2.2); Bilirubin,Total 0.5 mg/dL (0.2-1.2); Calcium 8.5 mg/dL (8.6-10.8); Magnesium 1.5 mg/dL (1.6-2.6); Phosphorous 3.4 mg/dL (2.3-4.7); Potassium 5.4 mEq/L (3.5-4.5); Total Protein 7.7 g/dL (6.0-8.3)
[2017-01-12 08:23] LABS: Hemoglobin A1C 7.4 %
[2017-01-12] MEDS ORDERED: Aspirin 81 MG TAB.CHEW PO SCH (09:00)
[2017-01-12] MEDS: 0.9 % Sodium Chloride 1,000 ML IVC SCH (09:43)
[2017-01-12] MEDS: Insulin LISPRO 300 UNITS/3 ML VIAL SQ SCH ×5 (10:12→22:35)
[2017-01-12 10:30] LABS: Thyroid Stimulating Hormone 1.417 mcIU/mL (0.350-4.840)
[2017-01-12] MEDS: *HR* OxyCODONE Immed Rel 5 MG TABLET PO PRN (12:20)
[2017-01-12] MEDS ORDERED: Vancomycin 2,000 MG in D5% in Water 500 ML IVPB ONE (13:00)
--- NOTE | 2017-01-12 14:03 | Event Note ---
Date of Encounter: 01/12/17 Time of Encounter: 14:01 acute pulmonary edema 2ry to CHF systolic vs diastolic in combination with possible CAP likely atypical start azithromycin discontinue cefepime and Vanco acute lower extremity cellulitis/ left ulcer , chronic lymphedema may start rocephin
[2017-01-12] MEDS ORDERED: Magnesium Oxide 400 MG TABLET PO ONE (15:00)
[2017-01-12 15:05] LABS: INR 2.6
--- NOTE | 2017-01-12 17:06 | Electrocardiograph Report ---
[address] [place] [address] Test Date: 2017-01-11 Pat Name: Dale Jerez Department: 105 Room: 2A36 Gender: M Curator Of Collections: : 1945 Requested By: John Ward Order Number: [id number] Reading MD: Enoch Ndiaye MD Measurements Intervals [place] Rate: 85 P: -19 OK: 335 QRS: -13 QRSD: 77 T: 77 QT: 382 QTc: 424 Interpretive Statements SINUS RHYTHM WITH FIRST DEGREE AV BLOCK CONSIDER LATERAL ISCHEMIA Electronically Signed On 01-12-2017 17:04:37 EST by Enoch Ndiaye MD
[2017-01-12] MEDS ORDERED: Warfarin perPT PO PRN (18:00)
[2017-01-12] MEDS ORDERED: Cefepime HCl 1,000 MG in D5% in Water (Mini-Bag+) 100 ML IVPB SCH (18:00)
[2017-01-12] MEDS ORDERED: *HR* Warfarin 7.5 MG TABLET PO SCH (18:00)
[2017-01-12] MEDS: Furosemide 40 MG/4 ML VIAL IV SCH (21:37)
[2017-01-12] MEDS: Azithromycin 500 MG in D5% in Water 250 ML IVPB SCH (21:38)
[2017-01-12] MEDS: Insulin DETEMIR 100 UNIT/ML X5UNITS SQ SCH (22:33)
[2017-01-13] MEDS: Ipratropium/Albuterol Neb 3 ML IH SCH ×5 (03:02→21:11)
[2017-01-13] MEDS: *HR* OxyCODONE Immed Rel 5 MG TABLET PO PRN ×3 (06:52→22:25)
[2017-01-13 08:05] LABS: INR 2.5
[2017-01-13 08:19] LABS: Mean Corpuscular HGB Conc 30.8 g/dL (31.6-35.5); Mean Corpuscular Hemoglobin 24.5 pg (28.0-33.3); Mean Corpuscular Volume 79.5 fL (83.0-100.0); Mean Platelet Volume 10.7 fL (9.4-12.4); Platelet Count 181 K/mcL (140-400); Red Blood Count 3.27 M/mcL (4.19-5.50); Red Cell Distribution Width 16.5 % (11.5-14.5)
[2017-01-13 08:20] LABS: Calcium 8.2 mg/dL (8.6-10.8); Potassium 4.2 mEq/L (3.5-4.5)
[2017-01-13] MEDS: Aspirin Enteric Coated 81 MG Tablet PO SCH (08:36)
[2017-01-13] MEDS: Insulin LISPRO 300 UNITS/3 ML VIAL SQ SCH ×7 (08:36→22:22)
[2017-01-13] MEDS: Furosemide 40 MG/4 ML VIAL IV SCH ×2 (08:37→22:19)
[2017-01-13 09:40] LABS: Basophils % 0.1 %; Eosinophils # 0.1 K/mcL (0.0-0.6); Eosinophils % 1.1 %; Immature Granulocytes % 0.4 % (0-4); Lymphocytes # 0.8 K/mcL (0.6-4.6); Lymphocytes % 7.2 %; Monocytes # 0.7 K/mcL (0.0-1.3); Monocytes % 6.8 %; Neutrophils # 8.8 K/mcL (1.6-8.9); Segmented Neutrophils % 84.4 %
--- NOTE | 2017-01-13 09:58 | ECHO - Doppler Report ---
Echocardiogram Name: Dale Jerez Date of Study: 01/12/2017 Date: 1945 Ht: 73.0 in Medical Record#: [id number] Age: 71 Wt: 311.0 lb Gender: Male BSA: 2.6 Order #: [id number] Location: [facility] Room #: [id number] Reading Physician: Madelyn Mathis DO Care Trainer: Coty Vásquez RDCS Ordering Physician: Emil Means MD Primary Physician: [facility] Indications: ACS Impressions: LVEF 55%. Normal left ventricular size and systolic function. Indeterminate diastolic function. Normal right ventricular size and function. Moderate aortic stenosis. Mild tricuspid regurgitation. At least mild pulmonary hypertension by TR gradient, 44 mmHg. IVC is not well visualized to estimate RVSP. Left Ventricular Wall Motion: Rest Echo Findings All wall segments showed normal motion. Findings: Study Quality * Technically sub-optimal due to body habitus. ECG Findings * Consider NSR with first degree AVB. Aortic Valve * No aortic regurgitation. * Aortic valve not well visualized. * Moderate aortic stenosis. PV 2.9m/s, MG 18 mmHg, DI 0.35, BRYON 1.1 cm2 Mitral Valve * Mild mitral annular calcification * Mildly calcified mitral valve leaflets. * Mitral valve not well visualized. * No mitral stenosis. * Trace mitral regurgitation. Tricuspid Valve * Tricuspid valve not well visualized. * Mild tricuspid regurgitation. Pulmonic Valve * Pulmonic valve is not well visualized. * No pulmonic stenosis. * No pulmonic regurgitation. Pulmonary Artery * Pulmonary artery not well visualized. Right Ventricle * Normal right ventricular structure and function. Left Ventricle * Normal LV chamber size, wall thickness and function. * Indeterminate diastolic function. * LVEF 55%. Right Atrium * Normal right atrial size. Left Atrium * Normal left atrial size. IVC * The IVC is not well evaluated. Interatrial Septum * Interatrial septum not well evaluated. Pericardium * There is no pericardial effusion present. Aorta * Suboptimally visualized. History Hypertension Diabetes Hypercholesteremia Congestive Heart Failure Measurements: BP: 162/ 77 2D Normal Values IVSd: 1.09 cm 0.6 - 1.0 cm LVIDd: 5.66 cm 3.7 - 5.6 cm LVPWd: 1.11 cm 0.6 - 1.1 cm LVIDs: 3.59 cm 1.5 - 3.6 cm AO: 3.20 cm < 4.0 cm LA: 4.20 cm 2.0 - 4.0cm %FS: 36.60 cm >25 % LVOT Diam: 2.00 cm LA volume: 65 Mitral Valve Peak E:1.59 m/sec Peak A:1.29 m/sec E/A Ratio:1.2 Peak E' Lat Rogelio:10.9 cm/s Peak E' Med Rogelio:11.2 cm/s E/E' Lat Ratio:14.6 E/E' Med Ratio:14.2 LVOT Peak Rogelio:.97 m/sec Mean Rogelio:.67 m/sec Peak Grad:4.00 mmHg Mean Grad:2.00 mmHg Aortic Valve Peak Rogelio:2.88 m/sec Mean Rogelio:2.02 m/sec Peak Grad:33.00 mmHg Mean Grad:18.67 mmHg Valve Area:1.08 cm2 Tricuspid Valve TV Regurg Peak Grad: 44.00mmHg TV Regurg Peak Rogelio: 3.33m/sec Updated by Madelyn Mathis on 01/13/2017 9:52:35 AM electronically signed on 01/13/2017 9:53:36 AM with status of Final Wall Motion Navarro: 1=Normal, 2=Hypokinesis, 3=Akinesis, 4=Dyskinesis, 5=Aneurysmal, 6=Hyperkinetic, X=Not Visualized (Blank)=Missing
--- NOTE | 2017-01-13 10:09 | Internal Med Progress Note ---
<Ankur Menon - Last Filed: 01/13/17 15:09> Date of Encounter: 01/13/17 Time of Encounter: 08:30 - Assessment and plan (1) Gastroenteritis Current Visit: Yes Status: Acute Assessment and plan: resolved. Patient reports no further N/v/D Likley viral (2) CHF (congestive heart failure) Current Visit: Yes Status: Acute Assessment and plan: diastolic Mildly fluid overloaded. continue Iv lasix Qualifiers: Qualified Code(s): I50.9 - Heart failure, unspecified (3) Aortic stenosis Current Visit: Yes Status: Acute Assessment and plan: Moderate follow up as OP Qualifiers: Qualified Code(s): I35.0 - Nonrheumatic aortic (valve) stenosis (4) Wound of lower extremity Current Visit: Yes Status: Acute Assessment and plan: wound care continue rocephin Patient afebrile and Leukocytosis has resolved. Qualifiers: Qualified Code(s): S81.809A - Unspecified open wound, unspecified lower leg, initial encounter (5) Diabetes Current Visit: Yes Status: Acute Assessment and plan: on sliding scale Qualifiers: Qualified Code(s): E11.9 - Type 2 diabetes mellitus without complications (6) Chronic venous stasis dermatitis Current Visit: Yes Status: Acute Assessment and plan: skin care may consider topical corticosteroid. Qualifiers: Qualified Code(s): I83.10 - Varicose veins of unspecified lower extremity with inflammation (7) Iron deficiency anemia Current Visit: Yes Status: Acute Assessment and plan: in the setting of chronicn anticoagulations. should have endoscpy as outpatint if not recently performed. Qualifiers: Qualified Code(s): D50.9 - Iron deficiency anemia, unspecified (8) Leukocytosis Current Visit: Yes Status: Acute Assessment and plan: resolved Qualifiers: Qualified Code(s): D72.829 - Elevated white blood cell count, unspecified (9) DVT prophylaxis Current Visit: Yes Status: Acute Assessment and plan: on coumadin (10) History of DVT (deep vein thrombosis) Current Visit: Yes Status: Acute Assessment and plan: on coumadin - Subjective Interval history: No major events overnight documented. Patient does complain of chronic low back pain. He states it is like his normal back pain. However he states that he is a gets Vicodin. He states that his pain is a 10 out of 10. Of note I did have to weight the patient up to interview him. He denies any difficulty in breathing. He denies any cough, wheeze. He denies any melena or hematochezia. Denies abdominal pain. He has no further complaints or concerns at this time. - Constitutional Vitals: Temp Pulse Resp BP Pulse Ox 98.3 F 75 16 165/76 94 L 01/13/17 08:54 01/13/17 08:54 01/13/17 08:54 01/13/17 08:54 01/13/17 08:54 Exam: General: This is a well-developed well-nourished obese 71-year-old male who is currently alert and orientated to person and situation. However he struggles on time. Lying in bed appears to be comfortable he is in no acute distress this time. Head: Head normocephalic atraumatic. EENT: Anicteric sclerae, pupils equal round reactive light and accommodation. Moist because membranes. Poor dentition. Neck supple without mass or thyromegaly. Neck is obese. No cervical or supraclavicular lymphadenopathy palpable on examination. No JVD. Heart: Heart is regular rate and rhythm. There is a 2/6 systolic ejection murmur heard best at the right upper sternal border radiates up into the neck. Abdomen: Abdomen is obese, nondistended, nontender palpation. Bowel sounds are positive in all quadrants. Musculoskeletal: Grossly normal for age no gross deformity noted. Extremities: There is no clubbing, cyanosis. There is 2+ tense pitting edema up to the level of the thigh bilaterally. He does have chronic venous stasis changes bilaterally. Integument: He does have a left lower extremity wound. It is clean and was distress. No shadowing. He does have chronic venous stasis changes of the legs bilaterally. Internal Medicine: Result - Labs CBC & Chem 7: 01/13/17 07:18 01/13/17 07:18 Labs: Short CBC 01/13/17 Range/Units 07:18 WBC 10.5 (4.3-11.1) K/mcL Hgb 8.0 L (12.9-16.9) g/dL Hct 26.0 L (37.5-50.1) % Plt Count 181 (140-400) K/mcL Neutrophils # 8.8 (1.6-8.9) K/mcL BMP 01/12/17 01/13/17 14:25 07:18 Sodium 138 Potassium 4.6 H 4.2 Chloride 105 Carbon Dioxide 23 BUN 35 H Creatinine 1.71 H Glucose 87 Calcium 8.2 L Cardiac Enzymes 01/12/17 01/12/17 Range/Units 14:25 20:16 Troponin I 0.09 H* 0.12 H* (0-0.03) ng/mL - ABG Interpretation ABG results: PT/INR, D-dimer PT 28.0 Seconds (9.4-12.1) H 01/13/17 07:18 - VTE Documentation of Mechanical Device: Intermittent pneumatic compression device Consult Discharge Plan - Plan [facility] Care Provider[facility] - <Yash Webb P - Last Filed: 01/13/17 17:54> Date of Encounter: 01/13/17 - Constitutional Vitals: Temp Pulse Resp BP Pulse Ox 98.4 F 79 19 176/116 92 L 01/13/17 15:49 01/13/17 15:49 01/13/17 15:49 01/13/17 15:49 01/13/17 15:49 Internal Medicine: Result - Labs CBC & Chem 7: 01/13/17 07:18 01/13/17 07:18 Labs: Short CBC 01/13/17 Range/Units 07:18 WBC 10.5 (4.3-11.1) K/mcL Hgb 8.0 L (12.9-16.9) g/dL Hct 26.0 L (37.5-50.1) % Plt Count 181 (140-400) K/mcL Neutrophils # 8.8 (1.6-8.9) K/mcL BMP 01/13/17 07:18 Sodium 138 Potassium 4.2 Chloride 105 Carbon Dioxide 23 BUN 35 H Creatinine 1.71 H Glucose 87 Calcium 8.2 L Cardiac Enzymes 01/12/17 01/13/17 Range/Units 20:16 16:17 Troponin I 0.12 H* 0.06 H* (0-0.03) ng/mL - ABG Interpretation ABG results: PT/INR, D-dimer PT 28.0 Seconds (9.4-12.1) H 01/13/17 07:18 - Attending Attestation I examined this patient and my medical decision-making was reviewed with the AIR ROUTE CONTROLLER/PA/Advanced Practice Nurse/Resident Physician. I agree with the documented findings, disposition and treatment plan as described except to the extent set forth below.
[2017-01-13] MEDS ORDERED: Vancomycin 1,500 MG in D5% in Water 250 ML IVPB SCH (13:00)
[2017-01-13] MEDS: 0.9 % Sodium Chloride 1,000 ML IVC SCH (14:06)
[2017-01-13] MEDS ORDERED: Hydrocortisone Lotion 59 ML BOTTLE TP ONE (15:11)
[2017-01-13] MEDS: Miconazole 2% ointment 114 GM TUBE TP SCH (16:17)
[2017-01-13] MEDS: *HR* Warfarin 4 MG TABLET PO SCH (16:18)
[2017-01-13] MEDS ORDERED: *HR* Warfarin 7.5 MG TABLET PO SCH (18:00)
[2017-01-13] MEDS ORDERED: *HR* Warfarin 10 MG TABLET PO SCH (18:00)
[2017-01-13] MEDS: Insulin DETEMIR 100 UNIT/ML X5UNITS SQ SCH (22:33)
[2017-01-13] MEDS: Azithromycin 500 MG in D5% in Water 250 ML IVPB SCH (22:44)
[2017-01-14] MEDS: Ipratropium/Albuterol Neb 3 ML IH SCH ×7 (00:22→22:28)
[2017-01-14] MEDS: *HR* OxyCODONE Immed Rel 5 MG TABLET PO PRN ×3 (01:10→18:01)
[2017-01-14 07:37] LABS: INR 2.5; Prothrombin Time 27.9 Seconds (9.4-12.1)
[2017-01-14] MEDS: Aspirin Enteric Coated 81 MG Tablet PO SCH (08:30)
[2017-01-14] MEDS: Furosemide 40 MG/4 ML VIAL IV SCH ×2 (08:32→21:11)
[2017-01-14] MEDS: Insulin LISPRO 300 UNITS/3 ML VIAL SQ SCH ×7 (08:36→22:41)
[2017-01-14] MEDS ORDERED: Fluconazole 100 MG/50 ML 100 MG/50 ML BAG IVPB SCH (09:44)
[2017-01-14] MEDS: Magic Mouthwash 10 ML UD Cup PO SCH ×2 (11:59→16:33)
[2017-01-14] MEDS: Miconazole 2% ointment 114 GM TUBE TP SCH (12:05)
--- NOTE | 2017-01-14 13:35 | Internal Med Progress Note ---
<Ankur Menon - Last Filed: 01/14/17 14:51> Date of Encounter: 01/14/17 Time of Encounter: 08:35 - Assessment and plan (1) Gastroenteritis Current Visit: Yes Status: Acute Assessment and plan: resolved. Patient reports no further N/v/D Likley viral (2) CHF (congestive heart failure) Current Visit: Yes Status: Acute Assessment and plan: diastolic Mildly fluid overloaded. continue Iv lasix April the volume is reported as +800 mL. This is likely inaccurate. Clinically he is less edematous today. Qualifiers: Congestive heart failure type: diastolic (3) Aortic stenosis Current Visit: Yes Status: Acute Assessment and plan: Moderate follow up as OP (4) Wound of lower extremity Current Visit: Yes Status: Chronic Assessment and plan: wound care continue rocephin Patient afebrile and Leukocytosis has resolved. Qualifiers: Encounter type: initial encounter Laterality: unspecified laterality Qualified Code(s): S81.809A - Unspecified open wound, unspecified lower leg, initial encounter (5) Diabetes Current Visit: Yes Status: Acute Assessment and plan: on sliding scale (6) Chronic venous stasis dermatitis Current Visit: Yes Status: Chronic Assessment and plan: skin care topical corticosteroid. (7) Iron deficiency anemia Current Visit: Yes Status: Acute Assessment and plan: in the setting of chronic anticoagulations. should have endospy as outpatient if not recently performed. (8) Leukocytosis Current Visit: Yes Status: Acute Assessment and plan: resolved (9) DVT prophylaxis Current Visit: Yes Status: Acute Assessment and plan: on coumadin (10) Muscular deconditioning Current Visit: Yes Status: Acute Assessment and plan: patient will likely need inpatient rehab. Awainting PT/OT assesment. (11) History of DVT (deep vein thrombosis) Current Visit: Yes Status: Acute Assessment and plan: on coumadin - Subjective Interval history: No major events overnight. Patient states that he is feeling better. he states he is breathing easily. No chest pain. He has no pain at this time. He states that he feels that his feet are not as swollen as much. He has no further complaints or concerns at this time. - Constitutional Vitals: Temp Pulse Resp BP Pulse Ox 98.5 F 72 18 149/67 94 L 01/14/17 11:01 01/14/17 11:01 01/14/17 11:31 01/14/17 11:01 01/14/17 11:31 Exam: General: This is a well-developed well-nourished 71-year-old male who is alert and orientated to person place and situation of this time. Lying in bed appears to be comfortable and in no acute distress this time. Head: Head is normal cephalic and atraumatic. EENT: Anicteric sclera, pupils equally round reactive to light and accommodation. Without mass or thyromegaly. Neck is obese. No cervical or supraclavicular particular lymphadenopathy palpable on exam. Heart: The heart has a regular rate and rhythm without murmurs rubs or gallops however the exam is somewhat limited and the heart sounds are somewhat distant second to body habitus. There is a normal rise and expansive the chest wall bilaterally. No JVD. Lungs: Clear to auscultation bilaterally. He has a normal effort of breathing and is able to converse in full sentences. Abdomen: The abdomen is obese, nondistended, nontender to palpation. Extremities: There is no clubbing or cyanosis. There is chronic venous stasis changes and what appears to be stasis dermatitis. He also has a venous stasis ulcer that is well dressed and clean at this time. He does have diffuse desquamation of the skin bilaterally. Internal Medicine: Result - Labs CBC & Chem 7: 01/13/17 07:18 01/13/17 07:18 Labs: Cardiac Enzymes 01/13/17 Range/Units 16:17 Troponin I 0.06 H* (0-0.03) ng/mL - ABG Interpretation ABG results: PT/INR, D-dimer PT 27.9 Seconds (9.4-12.1) H 01/14/17 05:58 - Impressions Impressions Retroperitoneum Ultrasound 01/13/17 20:00 IMPRESSION: No hydronephrosis. Poor voiding of the bladder with postvoid residual of 574 ml. D/ / Lindsay Byers MD / Lindsay Byers MD Interpreting Provider: Lindsay Byers MD - VTE Documentation of Mechanical Device: Intermittent pneumatic compression device Consult Discharge Plan - Plan [facility]errals: [facility] [Primary Care Provider[facility] - <Yash Webb P - Last Filed: 01/14/17 18:39> - Constitutional Vitals: Temp Pulse Resp BP Pulse Ox 98.3 F 71 18 161/69 97 01/14/17 15:41 01/14/17 15:41 01/14/17 16:26 01/14/17 15:41 01/14/17 16:26 Internal Medicine: Result - Labs CBC & Chem 7: 01/13/17 07:18 01/13/17 07:18 - ABG Interpretation ABG results: PT/INR, D-dimer PT 27.9 Seconds (9.4-12.1) H 01/14/17 05:58 - Impressions Impressions Retroperitoneum Ultrasound 01/13/17 20:00 IMPRESSION: No hydronephrosis. Poor voiding of the bladder with postvoid residual of 574 ml. D/ / Lindsay Byers MD / Lindsay Byers MD Interpreting Provider: Lindsay Byers MD - Attending Attestation I examined this patient and my medical decision-making was reviewed with the DREDGE ENGINEER/PA/Advanced Practice Nurse/Resident Physician. I agree with the documented findings, disposition and treatment plan as described except to the extent set forth below.
[2017-01-14] MEDS: 0.9 % Sodium Chloride 1,000 ML IVC SCH (15:32)
[2017-01-14] MEDS: hydrALAZINE 25 MG TABLET PO SCH (16:33)
[2017-01-14] MEDS: *HR* Warfarin 4 MG TABLET PO SCH (16:33)
[2017-01-14] MEDS: Azithromycin 500 MG in D5% in Water 250 ML IVPB SCH (19:39)
[2017-01-14] MEDS: Insulin DETEMIR 100 UNIT/ML X5UNITS SQ SCH (21:12)
[2017-01-15] MEDS: hydrALAZINE 25 MG TABLET PO SCH ×3 (00:14→17:01)
[2017-01-15] MEDS: Ipratropium/Albuterol Neb 3 ML IH SCH ×6 (03:31→23:37)
[2017-01-15] MEDS ORDERED: hydrALAZINE 25 MG TABLET PO SCH (06:34)
[2017-01-15 06:51] LABS: Basophils % 0.4 %; Eosinophils # 0.4 K/mcL (0.0-0.6); Eosinophils % 4.7 %; Hematocrit 25.3 % (37.5-50.1); Hemoglobin 7.8 g/dL (12.9-16.9); Immature Granulocytes % 0.5 % (0-4); Lymphocytes # 0.8 K/mcL (0.6-4.6); Lymphocytes % 10.9 %; Mean Corpuscular HGB Conc 30.8 g/dL (31.6-35.5); Mean Corpuscular Hemoglobin 24.9 pg (28.0-33.3); Mean Corpuscular Volume 80.8 fL (83.0-100.0); Mean Platelet Volume 10.9 fL (9.4-12.4); Monocytes # 0.7 K/mcL (0.0-1.3); Monocytes % 9.6 %; Neutrophils # 5.5 K/mcL (1.6-8.9); Platelet Count 203 K/mcL (140-400); Red Blood Count 3.13 M/mcL (4.19-5.50); Red Cell Distribution Width 16.4 % (11.5-14.5); Segmented Neutrophils % 73.9 %
[2017-01-15 06:55] LABS: INR 2.8; Prothrombin Time 31.6 Seconds (9.4-12.1)
[2017-01-15 07:11] LABS: Calcium 7.9 mg/dL (8.6-10.8)
[2017-01-15] MEDS: Aspirin Enteric Coated 81 MG Tablet PO SCH (09:09)
[2017-01-15] MEDS: Furosemide 40 MG/4 ML VIAL IV SCH ×2 (09:09→17:01)
[2017-01-15] MEDS: Magic Mouthwash 10 ML UD Cup PO SCH ×3 (09:11→17:01)
[2017-01-15] MEDS: Insulin LISPRO 300 UNITS/3 ML VIAL SQ SCH ×6 (09:13→17:01)
[2017-01-15] MEDS ORDERED: Furosemide 40 MG/4 ML VIAL IV SCH (09:15)
[2017-01-15] MEDS: Miconazole 2% ointment 114 GM TUBE TP SCH (09:19)
--- NOTE | 2017-01-15 11:17 | Internal Med Progress Note ---
<Ankur Menon - Last Filed: 01/15/17 15:15> Date of Encounter: 01/15/17 Time of Encounter: 08:45 - Assessment and plan (1) Gastroenteritis Current Visit: Yes Status: Acute Assessment and plan: resolved. Patient reports no further N/v/D Likely viral (2) CHF (congestive heart failure) Current Visit: Yes Status: Acute Assessment and plan: Diastolic Patient is +3L and also gaining weight. Will increase Lasix to 60 mg IV BID. fluid restriction of 2L per day. Qualifiers: Congestive heart failure type: diastolic Qualified Code(s): I50.30 - Unspecified diastolic (congestive) heart failure (3) Aortic stenosis Current Visit: Yes Status: Acute Assessment and plan: Moderate follow up as OP Qualifiers: Qualified Code(s): I35.0 - Nonrheumatic aortic (valve) stenosis (4) Wound of lower extremity Current Visit: Yes Status: Chronic Assessment and plan: Venlous stacis ulcer. Stage 2/3 wound care continue rocephin Patient afebrile and Leukocytosis has resolved. Qualifiers: Encounter type: initial encounter Laterality: unspecified laterality Qualified Code(s): S81.809A - Unspecified open wound, unspecified lower leg, initial encounter (5) Diabetes Current Visit: Yes Status: Acute Assessment and plan: on sliding scale at inpatient goal of < 180 Qualifiers: Qualified Code(s): E11.9 - Type 2 diabetes mellitus without complications (6) Chronic venous stasis dermatitis Current Visit: Yes Status: Chronic Assessment and plan: skin care topical corticosteroid. (7) Iron deficiency anemia Current Visit: Yes Status: Acute Assessment and plan: in the setting of chronic anticoagulations. should have endoscopy as outpatient if not recently performed. Hg trending down slightly Dilution from fluid retention? Will continue to follow closely no active bleeding at this time Qualifiers: Qualified Code(s): D50.9 - Iron deficiency anemia, unspecified (8) Leukocytosis Current Visit: Yes Status: Acute Assessment and plan: resolved Qualifiers: Qualified Code(s): D72.829 - Elevated white blood cell count, unspecified (9) DVT prophylaxis Current Visit: Yes Status: Acute Assessment and plan: on coumadin (10) Muscular deconditioning Current Visit: Yes Status: Acute Assessment and plan: patient will likely need inpatient rehab. Awaiting PT/OT assesment. they had signed off on patient. So will reconsult PT/OT. (11) History of DVT (deep vein thrombosis) Current Visit: Yes Status: Acute Assessment and plan: on coumadin - Subjective Interval history: No major events overnight. Patient states that he is feeling better. he states he is breathing easily. No chest pain. He has no pain at this time. He states that he feels that his feet are not as swollen as much. He states that he is able to move his legs much better now. He is requesting physical therapy. He has no further complaints or concerns at this time. - Constitutional Vitals: Temp Pulse Resp BP Pulse Ox 98 F 72 16 169/74 99 01/15/17 07:12 01/15/17 07:12 01/15/17 07:44 01/15/17 07:12 01/15/17 07:44 Exam: General: This is a very pleasant well-developed well-nourished 71-year-old male who is alert and orientated to person place time and situation. His lung that appears be comfortable no acute distress at this time. Head: Normocephalic and atraumatic. HEENT: Anicteric sclera, and is legally blind. Moist because membranes. Without masses thyromegaly. Heart: Heart has regular rate and rhythm without murmurs rubs or gallops. Lungs: Clear to auscultation bilaterally. Abdomen: Obese, nondistended, nontender palpation. Musculoskeletal: Grossly normal for age no gross organ noted. Extremities: There is no clubbing or cyanosis. He does have a 2+ pitting edema up to the level of the thigh bilaterally. Improving from yesterday's exam. Integument: He does have chronic venous stasis changes of the lower extremities bilaterally. Appears to be stasis dermatitis. He does have a well-dressed clean venous-stasis ulcer on the left. Internal Medicine: Result - Labs CBC & Chem 7: 01/15/17 06:11 01/15/17 06:11 Labs: Short CBC 01/15/17 Range/Units 06:11 WBC 7.5 (4.3-11.1) K/mcL Hgb 7.8 L (12.9-16.9) g/dL Hct 25.3 L (37.5-50.1) % Plt Count 203 (140-400) K/mcL Neutrophils # 5.5 (1.6-8.9) K/mcL [facility] 01/15/17 06:11 Sodium 137 Potassium 4.0 Chloride 104 Carbon Dioxide 25 BUN 42 H Creatinine 1.51 H Glucose 136 H Calcium 7.9 L - ABG Interpretation ABG results: PT/INR, D-dimer PT 31.6 Seconds (9.4-12.1) H 01/15/17 06:11 - VTE Documentation of Mechanical Device: Intermittent pneumatic compression device Consult Discharge Plan - Plan [facility]errals: [facility] [Primary Care Provider] - <Yash Webb P - Last Filed: 01/15/17 18:36> - Constitutional Vitals: Temp Pulse Resp BP Pulse Ox 99 F 82 18 153/79 93 L 01/15/17 16:42 01/15/17 16:42 01/15/17 16:42 01/15/17 16:42 01/15/17 16:42 Internal Medicine: Result - Labs CBC & Chem 7: 01/15/17 06:11 01/15/17 06:11 Labs: Short CBC 01/15/17 Range/Units 06:11 WBC 7.5 (4.3-11.1) K/mcL Hgb 7.8 L (12.9-16.9) g/dL Hct 25.3 L (37.5-50.1) % Plt Count 203 (140-400) K/mcL Neutrophils # 5.5 (1.6-8.9) K/mcL [facility] 01/15/17 06:11 Sodium 137 Potassium 4.0 Chloride 104 Carbon Dioxide 25 BUN 42 H Creatinine 1.51 H Glucose 136 H Calcium 7.9 L - ABG Interpretation ABG results: PT/INR, D-dimer PT 31.6 Seconds (9.4-12.1) H 01/15/17 06:11 - Attending Attestation I examined this patient and my medical decision-making was reviewed with the ENTERPRISE ANALYST/PA/Advanced Practice Nurse/Resident Physician. I agree with the documented findings, disposition and treatment plan as described except to the extent set forth below.
[2017-01-15] MEDS: 0.9 % Sodium Chloride 1,000 ML IVC SCH ×2 (14:53→14:54)
[2017-01-15] MEDS: *HR* OxyCODONE Immed Rel 5 MG TABLET PO PRN (17:06)
[2017-01-15] MEDS: Azithromycin 250 MG TABLET PO SCH (17:06)
[2017-01-15] MEDS ORDERED: *HR* Warfarin 7.5 MG TABLET PO SCH (18:00)
[2017-01-16] MEDS: Insulin LISPRO 300 UNITS/3 ML VIAL SQ SCH ×8 (00:13→20:42)
[2017-01-16] MEDS: Insulin DETEMIR 100 UNIT/ML X5UNITS SQ SCH ×2 (00:36→20:54)
[2017-01-16] MEDS: hydrALAZINE 25 MG TABLET PO SCH ×3 (00:36→16:53)
[2017-01-16] MEDS: Ipratropium/Albuterol Neb 3 ML IH SCH ×6 (04:53→23:07)
[2017-01-16 06:37] LABS: Basophils % 0.2 %; Eosinophils # 0.4 K/mcL (0.0-0.6); Eosinophils % 5.1 %; Hematocrit 26.4 % (37.5-50.1); Hemoglobin 8.1 g/dL (12.9-16.9); Immature Granulocytes % 0.4 % (0-4); Lymphocytes # 0.9 K/mcL (0.6-4.6); Lymphocytes % 10.3 %; Mean Corpuscular HGB Conc 30.7 g/dL (31.6-35.5); Mean Corpuscular Hemoglobin 24.8 pg (28.0-33.3); Mean Corpuscular Volume 80.7 fL (83.0-100.0); Mean Platelet Volume 10.8 fL (9.4-12.4); Monocytes # 0.8 K/mcL (0.0-1.3); Monocytes % 9.5 %; Neutrophils # 6.2 K/mcL (1.6-8.9); Platelet Count 231 K/mcL (140-400); Red Blood Count 3.27 M/mcL (4.19-5.50); Red Cell Distribution Width 16.7 % (11.5-14.5); Segmented Neutrophils % 74.5 %
[2017-01-16 06:50] LABS: Calcium 7.9 mg/dL (8.6-10.8); Potassium 3.9 mEq/L (3.5-4.5)
[2017-01-16 06:57] LABS: INR 3.1; Prothrombin Time 34.5 Seconds (9.4-12.1)
[2017-01-16] MEDS: Furosemide 40 MG/4 ML VIAL IV SCH ×2 (09:14→17:01)
[2017-01-16] MEDS: Aspirin Enteric Coated 81 MG Tablet PO SCH (09:14)
[2017-01-16] MEDS: Magic Mouthwash 10 ML UD Cup PO SCH ×3 (09:15→16:53)
[2017-01-16] MEDS: Miconazole 2% ointment 114 GM TUBE TP SCH (10:08)
[2017-01-16] MEDS: 0.9 % Sodium Chloride 1,000 ML IVC SCH (10:08)
--- NOTE | 2017-01-16 11:00 | Internal Med Progress Note ---
<Ankur Menon - Last Filed: 01/16/17 11:03> Date of Encounter: 01/16/17 Time of Encounter: 10:57 - Assessment and plan (1) Gastroenteritis Current Visit: Yes Status: Acute Assessment and plan: resolved. Patient reports no further N/v/D Likely viral (2) CHF (congestive heart failure) Current Visit: Yes Status: Acute Assessment and plan: Diastolic Patient is +4L. out of the has an accurate measurement of urine output. He is losing weight. Will continue Lasix to 60 mg IV BID. He was a slight increase in serum creatinine. If it continues to increase and decrease dose tomorrow. fluid restriction of 2L per day. Qualifiers: Congestive heart failure type: diastolic Qualified Code(s): I50.30 - Unspecified diastolic (congestive) heart failure (3) Aortic stenosis Current Visit: Yes Status: Acute Assessment and plan: Moderate 2/6 murmur on exam. follow up as OP Qualifiers: Qualified Code(s): I35.0 - Nonrheumatic aortic (valve) stenosis (4) Wound of lower extremity Current Visit: Yes Status: Chronic Assessment and plan: Venlous stacis ulcer. Stage 2/3 wound care continue rocephin Patient afebrile and Leukocytosis has resolved. Qualifiers: Encounter type: initial encounter Laterality: unspecified laterality Qualified Code(s): S81.809A - Unspecified open wound, unspecified lower leg, initial encounter (5) Diabetes Current Visit: Yes Status: Acute Assessment and plan: on sliding scale at inpatient goal of < 180 Qualifiers: Qualified Code(s): E11.9 - Type 2 diabetes mellitus without complications (6) Chronic venous stasis dermatitis Current Visit: Yes Status: Chronic Assessment and plan: skin care topical corticosteroid. (7) Iron deficiency anemia Current Visit: Yes Status: Acute Assessment and plan: in the setting of chronic anticoagulations. should have endoscopy as outpatient if not recently performed. Hg trending up Will continue to follow closely no active bleeding at this time Qualifiers: Qualified Code(s): D50.9 - Iron deficiency anemia, unspecified (8) Leukocytosis Current Visit: Yes Status: Acute Assessment and plan: resolved Qualifiers: Qualified Code(s): D72.829 - Elevated white blood cell count, unspecified (9) DVT prophylaxis Current Visit: Yes Status: Acute Assessment and plan: on coumadin (10) Muscular deconditioning Current Visit: Yes Status: Acute Assessment and plan: patient will likely need inpatient rehab. Awaiting PT/OT assesment. they had signed off on patient. So will reconsult PT/OT. (11) History of DVT (deep vein thrombosis) Current Visit: Yes Status: Acute Assessment and plan: on coumadin - Subjective Interval history: No major events overnight. Patient states that he did not tolerate sitting in a chair very well yesterday. States it causes back and muscles ache. Still not ambulating. He denies any dyspnea. He is now on room air. Denies any chest pain, abdominal pain. He states he is having normal bowel movements. Eating well. No further complaints or concerns at this time. - Constitutional Vitals: Temp Pulse Resp BP Pulse Ox 97.8 F 77 16 170/80 96 01/16/17 08:17 01/16/17 08:17 01/16/17 08:17 01/16/17 08:17 01/16/17 09:50 Exam: General: This is a well-developed well-nourished 71-year-old male. He is lying that appears to be comfortable in no acute distress at this time. Head: Normocephalic and atraumatic. EENT: Anicteric sclera, pupils equally round reactive to light and accommodation. Normal external appearance of ears nose and eyes. Does have some mild telangiectasias in the right cheek. Moist mucous membranes. Neck supple without masses thyromegaly. Does have a large fat pads in the supraclavicular area. Heart: Regular rate and rhythm does have a mild 2/6 systolic ejection murmur that does not radiate to the neck. Lungs: Clear to auscultation bilaterally normal effort of breathing. Abdomen: The abdomen is obese with large pannus bowel sounds are positive in all 4 quadrants. No tenderness to palpation. Musculoskeletal: Grossly normal for age no gross deformities noted. Integument: Does have chronic venous stasis ulcer on the left. It is currently clean well-dressed without shadowing. He does have chronic venous stasis changes of the lower extremities is bilaterally appears to have chronic stasis dermatitis. Extremities: There is no clubbing or cyanosis. He continues to have lower extremity edema 2+ up to the level of the knee however starting to have some wrinkles and is less edematous than yesterday. Internal Medicine: Result - Labs CBC & Chem 7: 01/16/17 05:59 01/16/17 05:59 Labs: Short CBC 01/16/17 Range/Units 05:59 WBC 8.3 (4.3-11.1) K/mcL Hgb 8.1 L (12.9-16.9) g/dL Hct 26.4 L (37.5-50.1) % Plt Count 231 (140-400) K/mcL Neutrophils # 6.2 (1.6-8.9) K/mcL BMP 01/16/17 05:59 Sodium 140 Potassium 3.9 Chloride 106 Carbon Dioxide 22 BUN 45 H Creatinine 1.58 H Glucose 134 H Calcium 7.9 L - ABG Interpretation ABG results: PT/INR, D-dimer PT 34.5 Seconds (9.4-12.1) H 01/16/17 05:59 - VTE Documentation of Mechanical Device: Intermittent pneumatic compression device Consult Discharge Plan - Plan [facility]: [facility] Provider[facility] - <Yash Webb P - Last Filed: 01/16/17 18:24> - Constitutional Vitals: Temp Pulse Resp BP Pulse Ox 98.2 F 73 16 148/70 94 L 01/16/17 16:22 01/16/17 16:22 01/16/17 16:22 01/16/17 16:22 01/16/17 16:22 Internal Medicine: Result - Labs CBC & Chem 7: 01/16/17 05:59 01/16/17 05:59 Labs: Short CBC 01/16/17 Range/Units 05:59 WBC 8.3 (4.3-11.1) K/mcL Hgb 8.1 L (12.9-16.9) g/dL Hct 26.4 L (37.5-50.1) % Plt Count 231 (140-400) K/mcL Neutrophils # 6.2 (1.6-8.9) K/mcL BMP 01/16/17 05:59 Sodium 140 Potassium 3.9 Chloride 106 Carbon Dioxide 22 BUN 45 H Creatinine 1.58 H Glucose 134 H Calcium 7.9 L - ABG Interpretation ABG results: PT/INR, D-dimer PT 34.5 Seconds (9.4-12.1) H 01/16/17 05:59 - Attending Attestation I examined this patient and my medical decision-making was reviewed with the [employer]ER/PA/Advanced Practice Nurse/Resident Physician. I agree with the documented findings, disposition and treatment plan as described except to the extent set forth below. home soon
[2017-01-16] MEDS: Azithromycin 250 MG TABLET PO SCH (16:53)
[2017-01-16] MEDS: *HR* OxyCODONE Immed Rel 5 MG TABLET PO PRN (17:03)
[2017-01-17] MEDS: *HR* OxyCODONE Immed Rel 5 MG TABLET PO PRN (01:09)
[2017-01-17] MEDS: hydrALAZINE 25 MG TABLET PO SCH ×2 (01:09→08:16)
[2017-01-17] MEDS: Ipratropium/Albuterol Neb 3 ML IH SCH ×3 (04:59→11:07)
[2017-01-17 06:41] LABS: INR 2.9; Prothrombin Time 32.7 Seconds (9.4-12.1)
[2017-01-17 06:52] LABS: Calcium 8.1 mg/dL (8.6-10.8); Potassium 4.1 mEq/L (3.5-4.5)
[2017-01-17 07:06] LABS: Basophils % 0.5 %; Eosinophils # 0.4 K/mcL (0.0-0.6); Eosinophils % 4.7 %; Hematocrit 25.5 % (37.5-50.1); Hemoglobin 7.8 g/dL (12.9-16.9); Immature Granulocytes % 0.5 % (0-4); Lymphocytes # 0.8 K/mcL (0.6-4.6); Lymphocytes % 9.8 %; Mean Corpuscular HGB Conc 30.6 g/dL (31.6-35.5); Mean Corpuscular Hemoglobin 24.2 pg (28.0-33.3); Mean Corpuscular Volume 79.2 fL (83.0-100.0); Mean Platelet Volume 10.7 fL (9.4-12.4); Monocytes # 0.8 K/mcL (0.0-1.3); Monocytes % 9.8 %; Neutrophils # 5.8 K/mcL (1.6-8.9); Platelet Count 252 K/mcL (140-400); Red Blood Count 3.22 M/mcL (4.19-5.50); Red Cell Distribution Width 16.6 % (11.5-14.5); Segmented Neutrophils % 74.7 %
[2017-01-17] MEDS: Furosemide 40 MG/4 ML VIAL IV SCH (08:16)
[2017-01-17] MEDS: Aspirin Enteric Coated 81 MG Tablet PO SCH (08:16)
[2017-01-17] MEDS: Insulin LISPRO 300 UNITS/3 ML VIAL SQ SCH ×4 (08:17→11:33)
[2017-01-17] MEDS: Magic Mouthwash 10 ML UD Cup PO SCH ×2 (08:21→11:33)
[2017-01-17 11:17] VITALS: BP 172/84
--- NOTE | 2017-01-17 13:14 | Discharge Summary ---
Date of Encounter: 01/17/17 Time of Encounter: 13:12 - Discharge Diagnosis (1) Acute gastroenteritis Priority: Primary Status: Acute (2) PRANAV (acute kidney injury) Priority: Primary Status: Acute (3) CHF (congestive heart failure) Priority: Secondary Status: Acute Qualifiers: Congestive heart failure type: diastolic Qualified Code(s): I50.30 - Unspecified diastolic (congestive) heart failure (4) Aortic stenosis Priority: Secondary Status: Acute Qualifiers: Cardiac valve disease etiology: etiology unspecified Qualified Code(s): I35.0 - Nonrheumatic aortic (valve) stenosis (5) Diabetes Priority: Secondary Status: Acute Qualifiers: Diabetes mellitus type: type 2 Diabetes mellitus complication status: with unspecified complications Diabetes mellitus intermediate frame tender insulin use: unspecified intermediate frame tender insulin use status Qualified Code(s): E11.8 - Type 2 diabetes mellitus with unspecified complications - Discharge Medications Prescriptions: Nitroglycerin 0.4 mg SL Q5MIN PRN #30 tab.subl PRN Reason: Chest Pain OxyCODONE Immed Rel [Roxicodone 5 MG] 5 mg PO Q6HR PRN #10 tablet PRN Reason: Moderate Pain (4-6) Carvedilol [Coreg] 3.125 mg PO BIDWM #60 tablet Simvastatin [Zocor] 20 mg PO HS #30 tablet Home Medications: Aspirin [Lo-Dose Aspirin EC] 81 mg PO DAILY 01/12/17 [History] Bimatoprost [Lumigan] 1 drop BOTH EYES HS 01/12/17 [History] Brinzolamide/Brimonidine Tart [Simbrinza 1%-0.2% Eye Drops] 1 drop BOTH EYES TID 01/12/17 [History] Calcitriol [Rocaltrol] 0.25 mcg PO DAILY 01/12/17 [History] Clobetasol Propionate 0.05% [Temovate] 1 appl TP BID 01/12/17 [History] Collagenase Oint [Santyl] 1 appl TP DAILY 01/12/17 [History] Ferrous Sulfate [Iron] 325 mg PO DAILY 01/12/17 [History] Furosemide [Lasix] 80 mg PO DAILY 01/12/17 [History] Gabapentin [Neurontin] 600 mg PO TID 01/12/17 [History] Insulin ASPART [Novolog Flexpen] 20 - 36 unit SQ TIDWM 01/12/17 [History] Insulin Glargine [Lantus] 80 unit SQ QPM 01/12/17 [History] Lisinopril [Zestril] 5 mg PO DAILY 01/12/17 [History] Timolol Maleate 0.5% 1 drop BOTH EYES BID 01/12/17 [History] Urea [Keralac] 1 appl TP DAILY 01/12/17 [History] Warfarin [Coumadin] 7.5 mg PO MOFR 01/12/17 [History] Warfarin [Coumadin] 10 mg PO SUTUWETHSA 01/12/17 [History] Carvedilol [Coreg] 3.125 mg PO BIDWM #60 tablet 01/17/17 [Rx] Nitroglycerin 0.4 mg SL Q5MIN PRN #30 tab.subl 01/17/17 [Rx] OxyCODONE Immed Rel [Roxicodone 5 MG] 5 mg PO Q6HR PRN #10 tablet 01/17/17 [Rx] Simvastatin [Zocor] 20 mg PO HS #30 tablet 01/17/17 [Rx] Allergies/Adverse Reactions: Allergies metformin Allergy (Unknown, Verified 01/12/17 12:33) See Comments Patient states he has NKDA but Metformin is listed on his [place] medication list Date of admission: 01/12/17 08:08 [facility] Consults: 01/12/17 13:58 Consult to Wound Care [CONS] Routine Reason for Consult: wound to LLE Call Completed: No 01/14/17 08:18 Consult to Cardiac Rehabilitation-Phase1 [CONS] Routine Comment: Reason for Consult: AMI Time Notified: 08:18 Call Completed: Yes 01/15/17 09:48 OT [Consult to Occupational Therapy] [CONS] Routine Comment: Evaluate, develop and implement POC PT [Consult to Physical Therapy] [CONS] Routine Comment: Evaluate, develop and implement POC Discharging clinician: Yash Webb - Patient Status Disposition: Home, Self-Care Condition: Fair Functional capacity at discharge: uses cane/walker Overall status at discharge: patient is progressing back to baseline - Discharge Instructions [facility] With: [facility] Care Provider[facility] - Additional Instructions: [facility] to pickle maker his walker on Thursday, as set up by manager social responsibility. - Diet and Activity Activity: increase activity as tolerated Diet: diabetic diet Interval History: Mr. Jerez is a 71 year old diabetic with chronic venous stasis, CHF, HTN, HLD, who presents to the ER complaining of weakness. He has had nausea and vomiting with decreased oral intake for the previous 2 days. he states difficulty in ambulating throughout his home. His lower extremity edema is worse due to him having vomited up his medications the past few days. Labs in the ER show hyperkalemia, PRANAV, elevated troponin, elevated BNP, neutropihilic leukocytosis, and anemia Hospital course: Patient was hospitalized. It was noted that patient has acute gastroenteritis. His acute kidney injury is likely secondary to acute gastroenteritis. Patient received guarded intravenous fluids. His creatinine showed downward trend. Patient felt overall much better as compared to the admission. Patient was evaluated by physical therapy. Physical therapy recommended inpatient rehabilitation. Patient refused to go for inpatient rehabilitation. Patient insisted to go home. Patient is not mobile in hospital/he is refusing inpatient rehabilitation. This patient is at great fall risk. I have emphasized this to the patient multiple times. Patient insisted to go home. Patient given refused today's physical therapy evaluation. Patient does understand the risk of fall. Plan: Patient can go home today but he does understand the risk of fall. Patient insists to go and does not follow the recommendations of physician/ physical therapist. Patient was given a prescription of medication which he ran out. He was given a prescription for pain pills (10 pain pills) Patient does need a walker and he can pickle maker that prescription from [place] where he has his primary care provider. Patient is supposed to follow up with his primary care provider at [place]. Time of discharge patient does not have any questions, concerns, physician or updates. - Time Spent with Patient Total time spent providing and/or coordinating discharge services: - Constitutional Vitals: Temp Pulse Resp BP Pulse Ox 97.9 F 64 16 172/84 96 01/17/17 11:10 01/17/17 11:10 01/17/17 11:10 01/17/17 11:10 01/17/17 11:10 General appearance: Present: cooperative, A&O X 3, obese - Head Head exam: Present: atraumatic, normocephalic - Eye Eye exam: Present: PERRL, conjuntiva pink, sclera anicteric Pupils: Present: PERRL - Neck Neck exam general surgery: Present: supple, trachea midline. Absent: lymphadenopathy - Respiratory Respiratory exam: Present: CTAB. Absent: accessory muscle use, rales, rhonchi, wheezes - Cardiovascular Cardiovascular exam: Present: RRR, +S1, +S2. Absent: diastolic murmur, gallop, rubs, systolic murmur - GI/Abdominal GI/Abdominal exam: Present: normal bowel sounds, soft, no peritoneal signs. Absent: distended, tenderness - Extremities Exam Extremities exam: Present: warm, radial pulses palpable and symetrical. Absent : calf tenderness, cyanotic, pedal edema - Neurological Exam Neurological exam: Present: CN II-XII intact, oriented X3, no focal deficits. Absent: pronater drift, facial droop, speech deficit - Skin Skin exam: Present: dry, intact - VTE Documentation of Mechanical Device: Venous foot pump, device
[2017-01-17] MEDS ORDERED: *HR* Warfarin 7.5 MG TABLET PO ONE (18:00)
== END 2017-01-17 14:28 | disposition home or self-care (01) | DRG 391 ==
LOC: 2ANU 21:56 → EMEROO 21:56 → 2ANU 01-12 03:09 → SUATTDRO 01-12 08:08
PROVIDERS: ADMIT Internal Medicine; ATTEND Internal Medicine